=== PATIENT | male | born 1960 | race African-American/Black ===

== ENCOUNTER 2017-02-10 15:37 | Emergency (ER) | payer OTHER ==
[~2017-02-10] VITALS: Ht 170.2 cm; Wt 100.0 kg
[2017-02-10] MEDS ORDERED: LIDOCAINE HCL 1% 10 ML VIAL INJ ONE (16:00)
[2017-02-10] MEDS ORDERED: LISI-661 PO (16:12)
[2017-02-10 17:22] VITALS: BP 151/99
== END 2017-02-10 17:45 | disposition home or self-care (01) ==
LOC: EMS 15:39
DX: S39.94XA Unspecified injury of external genitals, initial encounter (principal); I10 Essential (primary) hypertension; F17.210 Nicotine dependence, cigarettes, uncomplicated; X58.XXXA Exposure to other specified factors, initial encounter; Y93.89 Activity, other specified; Y92.89 Other specified places as the place of occurrence of the external cause; Y99.8 Other external cause status
CPT/HCPCS: 99283; J3490

== ENCOUNTER 2017-08-17 18:00 | Emergency (ER) | payer OTHER ==
[~2017-08-17] VITALS: Ht 170.2 cm; Wt 119.1 kg
[~2017-08-17 18:00] MED LIST: LISI-661 PO
[2017-08-17 20:11] LABS: HEMATOCRIT 42.2 % (41-53); HEMOGLOBIN 14.5 g/dL (13.5-17.5); MEAN CORPUSCULAR HEMOGLOBIN 31.8 pg (26.0-34.0); MEAN CORPUSCULAR HGB CONC 34.4 G/dL (31.0-37.0); MEAN CORPUSCULAR VOLUME 92 fL (80-100); PLATELET COUNT (AUTO) 133 K/uL (150-450); RED BLOOD CELL COUNT(AUTO) 4.57 MIL/uL (4.50-5.90)
[2017-08-17 20:15] LABS: ANION GAP 11 mmol/L (8-16); CALCIUM, TOTAL 8.7 mg/dL (8.8-10.5); CARBON DIOXIDE 26 mmol/L (22-29); CHLORIDE 100 mmol/L (98-107); CREATININE 1.09 mg/dL (0.60-1.30); GLOMERULAR FILTR. RATE CALC > 60 mL/min (>60); GLUCOSE,RANDOM 124 mg/dL (70-110); POTASSIUM 3.4 mmol/L (3.5-5.1); SODIUM SERUM 137 mmol/L (136-145); UREA NITROGEN, BLOOD 11 mg/dL (7-18)
[2017-08-17 20:21] LABS: ALANINE AMINOTRANSFERASE 66 U/L (12-78); ALBUMIN 2.7 g/dL (3.4-5.0); ALKALINE PHOSPHATASE 127 U/L (46-116); ASPARTATE AMINOTRANSFERASE 54 U/L (15-37); BILIRUBIN,TOTAL 0.6 mg/dL (0.1-1.0); TOTAL PROTEIN, SERUM 7.7 g/dL (6.4-8.2)
[2017-08-17 20:44] LABS: BAND NEUTROPHILS % (MANUAL) 4 % (1-5); LYMPHOCYTES % (MANUAL) 12 % (22-44); MONOCYTES % (MANUAL) 25 % (2-9); PLATELET MORPHOLOGY COMMENT GIANT PLTS PRESENT; SEGMENTED NEUTROPHILS % 59 % (40-70)
[2017-08-17] MEDS ORDERED: ALBUTEROL SULFATE 2.5 MG/0.5 ML NEB SOLUTION NEB ONE (20:45)
[2017-08-17 20:49] LABS: LACTIC ACID 1.6 mmol/L (0.4-2.0)
[2017-08-17] MEDS ORDERED: IOVERSOL 350 MG/ML 100 ML VIAL ONE (21:15)
[2017-08-17 22:01] LABS: INFLUENZA TYPE A NEGATIVE FOR TYPE A (NEGATIVE); INFLUENZA TYPE B POSITIVE FOR TYPE B (NEGATIVE)
[2017-08-17] MEDS ORDERED: OSELTAMIVIR PHOSPHATE 75 MG CAPSULE PO ONE (22:45)
[2017-08-17] MEDS ORDERED: ACETAMINOPHEN 500 MG TABLET PO ONE (22:45)
[2017-08-17] MEDS ORDERED: LEVOFLOXACIN 750 MG/D5% WATER 150 ML IV ONE (22:45)
[2017-08-17] MEDS ORDERED: SODIUM CHLORIDE 0.9% 1,000 ML IV ONE ×2 (23:00)
[2017-08-17 23:30] VITALS: BP 127/97
== END 2017-08-18 00:31 | disposition left against medical advice (07) ==
LOC: EMS 18:01
DX: J11.1 Influenza due to unidentified influenza virus with other respiratory manifestations (principal); J18.9 Pneumonia, unspecified organism; I10 Essential (primary) hypertension; M41.9 Scoliosis, unspecified; F17.210 Nicotine dependence, cigarettes, uncomplicated
CPT/HCPCS: 36415; 71046; 71260; 80053; 83605; 85025; 87040; 87804; 94640; 96365; 99285; J1956; J7030; J7613; Q9967

== ENCOUNTER 2020-12-23 10:38 | Inpatient (IN) | payer OTHER ==
[~2020-12-23] VITALS: Ht 177.8 cm; Wt 93.9 kg
[~2020-12-23 10:38] MED LIST changes: +ASPI-1450 PO; +FURO40 PO; +ISOS1TAB2 PO; -LISI-661 PO; +METO25 PO
[2020-12-23] MEDS ORDERED: ONDANSETRON HCL 4 MG/2 ML VIAL IVP ONE (12:00)
[2020-12-23 12:09] LABS: COVID AG,FIA SOURCE NASAL SWAB
[2020-12-23 12:23] LABS: GLUCOSE,POINT OF CARE 138 MG/DL (70-110)
[2020-12-23 12:42] LABS: ANION GAP 12 mmol/L (8-16); CALCIUM, TOTAL 9.3 mg/dL (8.8-10.5); CARBON DIOXIDE 23 mmol/L (22-29); CHLORIDE 104 mmol/L (98-107); CREATININE 1.34 mg/dL (0.60-1.30); GLOMERULAR FILTR. RATE CALC > 60 mL/min (>60); GLUCOSE,RANDOM 158 mg/dL (70-110); POTASSIUM 3.6 mmol/L (3.5-5.1); SODIUM SERUM 139 mmol/L (136-145); UREA NITROGEN, BLOOD 14 mg/dL (7-18)
[2020-12-23 12:47] LABS: ALANINE AMINOTRANSFERASE 79 U/L (12-78); ALBUMIN 3.4 g/dL (3.4-5.0); ALKALINE PHOSPHATASE 135 U/L (46-116); ASPARTATE AMINOTRANSFERASE 79 U/L (15-37); BILIRUBIN,TOTAL 1.1 mg/dL (0.1-1.0); LIPASE 39 U/L (73-393); TOTAL PROTEIN, SERUM 8.4 g/dL (6.4-8.2)
[2020-12-23 13:27] LABS: BASOPHILS % (AUTO) 0.5 % (0.0-2.0); EOSINOPHILS % (AUTO) 0.1 % (1.0-6.0); HEMATOCRIT 47.2 % (41-53); HEMOGLOBIN 15.6 g/dL (13.5-17.5); LYMPHOCYTES # (AUTO) 0.6 K/uL (1.0-4.8); LYMPHOCYTES % (AUTO) 10.9 % (22.0-44.0); MEAN CORPUSCULAR HEMOGLOBIN 30.9 pg (26.0-34.0); MEAN CORPUSCULAR VOLUME 94 fL (80-100); MONOCYTES # (AUTO) 0.4 K/uL (0.1-1.0); MONOCYTES % (AUTO) 7.3 % (2.0-9.0); NEUTROPHILS # (AUTO) 4.8 K/uL (1.8-7.7); NEUTROPHILS % (AUTO) 81.2 % (40.0-70.0); PLATELET COUNT (AUTO) 123 K/uL (150-450); RED BLOOD CELL COUNT(AUTO) 5.04 MIL/uL (4.50-5.90); RED CELL DISTRIBUTION WIDTH 14.3 % (11.5-14.5)
[2020-12-23] MEDS ORDERED: HEPARIN SODIUM,PORCINE 5,000 UNITS/ML VIAL IVP PRN ×2 (13:45)
[2020-12-23] MEDS ORDERED: NITROGLYCERIN 2% (1 GM=INCH) PACKET TP ONE (13:45)
[2020-12-23] MEDS ORDERED: METOPROLOL TARTRATE 50 MG TABLET PO ONE (13:45)
[2020-12-23] MEDS ORDERED: HEPARIN SODIUM,PORCINE 5,000 UNITS/ML VIAL IVP ONE (13:45)
[2020-12-23] MEDS ORDERED: ASPIRIN 81 MG CHEWABLE TABLET PO ONE (13:45)
[2020-12-23] MEDS ORDERED: ATORVASTATIN CALCIUM 40 MG TABLET PO ONE (14:00)
[2020-12-23 14:35] LABS: APPEARANCE,URINE CLEAR (CLEAR); BILIRUBIN,URINE NEGATIVE (NEGATIVE); GLUCOSE, URINE (UA) NEGATIVE (NEGATIVE); KETONES,URINE NEGATIVE (NEGATIVE); LEUKOCYTE ESTERASE ,URINE NEGATIVE (NEGATIVE); NITRATE,URINE NEGATIVE (NEGATIVE); OCCULT BLOOD,URINE SMALL (NEGATIVE); PH,URINE 6.5 (5.0-8.0); PROTEIN,URINE SEE CONFIRM (NEGATIVE)
[2020-12-23 14:43] LABS: AMPHET/METH SCREEN,URINE NEGATIVE (NEGATIVE); BARBITURATE SCREEN, URINE NEGATIVE (NEGATIVE); BENZODIAZEPINES SCREEN,URINE NEGATIVE (NEGATIVE); CANNABINOID SCREEN,URINE POSITIVE (NEGATIVE); COCAINE SCREEN,URINE NEGATIVE (NEGATIVE); METHADONE SCREEN, URINE NEGATIVE (NEGATIVE); OPIATE SCREEN,URINE NEGATIVE (NEGATIVE); PHENCYCLIDINE SCREEN,URINE NEGATIVE (NEGATIVE)
[2020-12-23 14:44] VITALS: BP 156/101
[2020-12-23] MEDS ORDERED: SODIUM CHLORIDE 0.9% 1,000 ML ONE (14:49)
[2020-12-23 14:51] LABS: SULFOSALICYLIC ACID,URINE 3+ (Negative)
[2020-12-23 14:52] LABS: BACTERIA,URINE None Seen /HPF (None Seen); RBC,URINE None Seen /HPF (0-2); SQUAMOUS EPITHELIAL CELL,UR Few /LPF (None Seen); WBC,URINE 0-2 /HPF (0-5)
[2020-12-23] MEDS ORDERED: ONDANSETRON HCL 4 MG/2 ML VIAL IVP PRN (15:45)
[2020-12-23] MEDS ORDERED: IPRATROPIUM BROMIDE 0.5 MG/2.5 ML NEB SOLUTION NEB PRN (15:45)
[2020-12-23] MEDS ORDERED: ACETAMINOPHEN 325 MG TABLET PO PRN (15:45)
[2020-12-23] MEDS ORDERED: ALBUTEROL SULFATE 2.5 MG/0.5 ML NEB SOLUTION NEB PRN (15:45)
[2020-12-23] MEDS ORDERED: NITROGLYCERIN 0.4 MG SUBLINGUAL TABLET #25 SL PRN (15:45)
[2020-12-23] MEDS ORDERED: 0.9% SODIUM CHLORIDE 10 ML SYRINGE IVP PRN (15:45)
[2020-12-23] MEDS ORDERED: MAGNESIUM HYDROXIDE SUSPENSION 30 ML UDCUP PO PRN (15:45)
[2020-12-23] MEDS ORDERED: DOCUSATE SODIUM 100 MG CAPSULE PO PRN (15:45)
[2020-12-23] MEDS ORDERED: BISACODYL 10 MG RECTAL RECTAL SUPPOSITORY PR PRN (15:45)
[2020-12-23] MEDS: PANTOPRAZOLE SODIUM 40 MG DR TABLET PO SCH ×2 (15:45→16:16)
[2020-12-23 16:01] LABS: INR 1.1 (0.9-1.1); PROTHROMBIN TIME 11.9 SEC (9.4-11.6)
[2020-12-23] MEDS: HEPARIN SODIUM 25000 UNITS/D5W 250 ML IV PRN (16:21)
[2020-12-23 19:30] VITALS: BP 147/91
[2020-12-23] MEDS: LISINOPRIL 5 MG TABLET PO SCH (20:12)
[2020-12-23] MEDS: METOPROLOL TARTRATE 25 MG TABLET PO SCH (20:12)
[2020-12-23] MEDS: MELATONIN 3 MG TABLET PO PRN (22:07)
[2020-12-23 23:52] VITALS: BP 132/90
[2020-12-24 04:45] VITALS: BP 145/97
[2020-12-24 06:52] LABS: BASOPHILS % (AUTO) 1.1 % (0.0-2.0); EOSINOPHILS % (AUTO) 0.8 % (1.0-6.0); HEMATOCRIT 43.9 % (41-53); HEMOGLOBIN 14.5 g/dL (13.5-17.5); LYMPHOCYTES # (AUTO) 1.8 K/uL (1.0-4.8); LYMPHOCYTES % (AUTO) 27.4 % (22.0-44.0); MEAN CORPUSCULAR HEMOGLOBIN 31.1 pg (26.0-34.0); MEAN CORPUSCULAR HGB CONC 33.1 G/dL (31.0-37.0); MEAN CORPUSCULAR VOLUME 94 fL (80-100); MONOCYTES # (AUTO) 0.9 K/uL (0.1-1.0); MONOCYTES % (AUTO) 13.5 % (2.0-9.0); NEUTROPHILS # (AUTO) 3.6 K/uL (1.8-7.7); NEUTROPHILS % (AUTO) 57.2 % (40.0-70.0); PLATELET COUNT (AUTO) 129 K/uL (150-450); RED BLOOD CELL COUNT(AUTO) 4.67 MIL/uL (4.50-5.90); RED CELL DISTRIBUTION WIDTH 14.2 % (11.5-14.5)
[2020-12-24 07:10] LABS: ALBUMIN 2.9 g/dL (3.4-5.0); BILIRUBIN,TOTAL 1.3 mg/dL (0.1-1.0); CALCIUM, TOTAL 9.2 mg/dL (8.8-10.5); CHOL/HDL RATIO 5.5 (4.2-7.3); CREATININE 1.51 mg/dL (0.60-1.30); POTASSIUM 3.7 mmol/L (3.5-5.1); TOTAL PROTEIN, SERUM 7.1 g/dL (6.4-8.2)
[2020-12-24 07:15] LABS: HEMOGLOBIN A1C 5.6 % (3.8-5.6)
[2020-12-24 07:37] VITALS: BP 150/93
[2020-12-24] MEDS: LISINOPRIL 5 MG TABLET PO SCH ×2 (08:32→20:44)
[2020-12-24] MEDS: ASPIRIN 81 MG CHEWABLE TABLET PO SCH (08:32)
[2020-12-24] MEDS: PANTOPRAZOLE SODIUM 40 MG DR TABLET PO SCH (08:33)
[2020-12-24] MEDS: METOPROLOL TARTRATE 25 MG TABLET PO SCH ×2 (08:33→20:41)
[2020-12-24] MEDS: HEPARIN SODIUM 25000 UNITS/D5W 250 ML IV PRN ×3 (08:45→21:17)
[2020-12-24 11:35] VITALS: BP 137/83
[2020-12-24 15:38] VITALS: BP 131/84
[2020-12-24 20:06] VITALS: BP 133/94
[2020-12-24] MEDS: MELATONIN 3 MG TABLET PO PRN (20:40)
[2020-12-25 00:23] VITALS: BP 139/88
[2020-12-25 04:34] VITALS: BP 141/89
[2020-12-25 07:17] VITALS: BP 124/86
[2020-12-25] MEDS: ASPIRIN 81 MG CHEWABLE TABLET PO SCH (08:14)
[2020-12-25] MEDS: PANTOPRAZOLE SODIUM 40 MG DR TABLET PO SCH (08:15)
[2020-12-25] MEDS: METOPROLOL TARTRATE 25 MG TABLET PO SCH (08:15)
[2020-12-25] MEDS: THIAMINE 100 MG TABLET PO SCH (08:15)
[2020-12-25] MEDS: FUROSEMIDE 20 MG TABLET PO SCH (08:15)
[2020-12-25] MEDS: MULTIVITAMINS WITH MINERALS, THERAPEUTIC TABLET PO SCH (08:15)
[2020-12-25] MEDS: LISINOPRIL 5 MG TABLET PO SCH ×2 (08:16→21:01)
[2020-12-25 11:07] VITALS: BP 108/63
[2020-12-25] MEDS: HEPARIN SODIUM 25000 UNITS/D5W 250 ML IV PRN (15:56)
[2020-12-25 16:27] VITALS: BP 121/86
[2020-12-25 20:42] VITALS: BP 129/79
[2020-12-25] MEDS: METOPROLOL SUCCINATE 25 MG ER TABLET PO SCH (21:01)
[2020-12-25] MEDS: MELATONIN 3 MG TABLET PO PRN (21:02)
[2020-12-25] MEDS: MORPHINE SULFATE 2 MG/ML SYRINGE IVP PRN (21:03)
[2020-12-26] VITALS (14 sets, daily range): BP systolic 93–138; BP diastolic 7–79
[2020-12-26 06:19] LABS: BASOPHILS % (AUTO) 0.4 % (0.0-2.0); EOSINOPHILS % (AUTO) 1.1 % (1.0-6.0); HEMATOCRIT 36.7 % (41-53); HEMOGLOBIN 12.1 g/dL (13.5-17.5); LYMPHOCYTES # (AUTO) 2.3 K/uL (1.0-4.8); LYMPHOCYTES % (AUTO) 29.9 % (22.0-44.0); MEAN CORPUSCULAR HEMOGLOBIN 31.4 pg (26.0-34.0); MEAN CORPUSCULAR HGB CONC 32.9 G/dL (31.0-37.0); MEAN CORPUSCULAR VOLUME 95 fL (80-100); MONOCYTES # (AUTO) 1.2 K/uL (0.1-1.0); MONOCYTES % (AUTO) 15.7 % (2.0-9.0); NEUTROPHILS % (AUTO) 52.9 % (40.0-70.0); PLATELET COUNT (AUTO) 120 K/uL (150-450); RED BLOOD CELL COUNT(AUTO) 3.85 MIL/uL (4.50-5.90); RED CELL DISTRIBUTION WIDTH 14.3 % (11.5-14.5)
[2020-12-26 06:34] LABS: INR 1.2 (0.9-1.1); PROTHROMBIN TIME 12.4 SEC (9.4-11.6)
[2020-12-26 06:55] LABS: ALBUMIN 2.7 g/dL (3.4-5.0); BILIRUBIN,TOTAL 0.7 mg/dL (0.1-1.0); CALCIUM, TOTAL 8.6 mg/dL (8.8-10.5); CREATININE 1.56 mg/dL (0.60-1.30); POTASSIUM 3.9 mmol/L (3.5-5.1); TOTAL PROTEIN, SERUM 6.4 g/dL (6.4-8.2)
[2020-12-26] MEDS ORDERED: SODIUM BICARBONATE 50 MEQ/50 ML VIAL ONE (08:33)
[2020-12-26] MEDS ORDERED: HEPARIN SODIUM 1000 UNITS/NS 1,000 ML ONE (08:33)
[2020-12-26] MEDS ORDERED: IOHEXOL 300 MG/ML 100 ML VIAL ONE (08:33)
[2020-12-26] MEDS ORDERED: IOHEXOL 300 MG/ML 150 ML VIAL ONE (08:33)
[2020-12-26] MEDS ORDERED: IOHEXOL 300 MG/ML 50 ML VIAL ONE (08:33)
[2020-12-26] MEDS ORDERED: LIDOCAINE/PF 1% 30 ML VIAL ONE (08:33)
[2020-12-26] MEDS: LISINOPRIL 5 MG TABLET PO SCH ×2 (09:00→20:50)
[2020-12-26] MEDS: ASPIRIN 81 MG CHEWABLE TABLET PO SCH (09:00)
[2020-12-26] MEDS ORDERED: FentaNYL CITRATE PF 100 MCG/2 ML VIAL ONE (09:01)
[2020-12-26] MEDS ORDERED: MIDAZOLAM HCL 2 MG/2 ML VIAL ONE (09:02)
[2020-12-26] MEDS ORDERED: IOHEXOL 300 MG/ML 150 ML VIAL IARTER ONE (09:15)
[2020-12-26] MEDS ORDERED: MIDAZOLAM HCL 2 MG/2 ML VIAL IVP ONE (09:15)
[2020-12-26] MEDS ORDERED: SODIUM CHLORIDE 0.9% 500 ML IV ONE (09:15)
[2020-12-26] MEDS ORDERED: FentaNYL CITRATE PF 100 MCG/2 ML VIAL IVP ONE (09:15)
[2020-12-26] MEDS ORDERED: HEPARIN SODIUM 1000 UNITS/NS 1,000 ML IARTER ONE (09:15)
[2020-12-26] MEDS ORDERED: LIDOCAINE 1% 30 ML/SOD BICARB 8.4% 4 ML SQ ONE (09:15)
[2020-12-26] MEDS ORDERED: IOHEXOL 300 MG/ML 50 ML VIAL IARTER ONE (09:15)
[2020-12-26] MEDS: THIAMINE 100 MG TABLET PO SCH (10:50)
[2020-12-26] MEDS: PANTOPRAZOLE SODIUM 40 MG DR TABLET PO SCH (10:50)
[2020-12-26] MEDS: MULTIVITAMINS WITH MINERALS, THERAPEUTIC TABLET PO SCH (10:50)
[2020-12-26] MEDS: METOPROLOL SUCCINATE 25 MG ER TABLET PO SCH ×2 (10:50→20:47)
[2020-12-26] MEDS ORDERED: FURO20 PO (14:35)
[2020-12-26] MEDS ORDERED: LISI-892 PO (14:36)
[2020-12-26] MEDS ORDERED: METO25XL PO (14:37)
[2020-12-26] MEDS: MELATONIN 3 MG TABLET PO PRN (20:50)
[2020-12-27 00:35] VITALS: BP 108/67
[2020-12-27 06:12] LABS: BASOPHILS % (AUTO) 0.6 % (0.0-2.0); EOSINOPHILS % (AUTO) 1.3 % (1.0-6.0); HEMATOCRIT 30.3 % (41-53); HEMOGLOBIN 10.3 g/dL (13.5-17.5); LYMPHOCYTES # (AUTO) 1.6 K/uL (1.0-4.8); LYMPHOCYTES % (AUTO) 22.1 % (22.0-44.0); MEAN CORPUSCULAR HEMOGLOBIN 32.1 pg (26.0-34.0); MEAN CORPUSCULAR VOLUME 94 fL (80-100); MONOCYTES # (AUTO) 1.2 K/uL (0.1-1.0); MONOCYTES % (AUTO) 16.8 % (2.0-9.0); NEUTROPHILS # (AUTO) 4.4 K/uL (1.8-7.7); NEUTROPHILS % (AUTO) 59.2 % (40.0-70.0); PLATELET COUNT (AUTO) 110 K/uL (150-450); RED CELL DISTRIBUTION WIDTH 14.5 % (11.5-14.5)
[2020-12-27 07:06] LABS: ALBUMIN 2.6 g/dL (3.4-5.0); BILIRUBIN,TOTAL 0.5 mg/dL (0.1-1.0); CALCIUM, TOTAL 8.4 mg/dL (8.8-10.5); CREATININE 1.54 mg/dL (0.60-1.30); POTASSIUM 3.7 mmol/L (3.5-5.1); TOTAL PROTEIN, SERUM 6.3 g/dL (6.4-8.2)
[2020-12-27 07:42] VITALS: BP 122/77
[2020-12-27] MEDS: ASPIRIN 81 MG CHEWABLE TABLET PO SCH (09:28)
[2020-12-27] MEDS: LISINOPRIL 5 MG TABLET PO SCH ×2 (09:28→20:42)
[2020-12-27] MEDS: FUROSEMIDE 20 MG TABLET PO SCH (09:28)
[2020-12-27] MEDS: MULTIVITAMINS WITH MINERALS, THERAPEUTIC TABLET PO SCH (09:28)
[2020-12-27] MEDS: PANTOPRAZOLE SODIUM 40 MG DR TABLET PO SCH (09:28)
[2020-12-27] MEDS: THIAMINE 100 MG TABLET PO SCH (09:28)
[2020-12-27] MEDS: METOPROLOL SUCCINATE 25 MG ER TABLET PO SCH ×2 (09:28→20:42)
[2020-12-27 11:56] VITALS: BP 116/72
[2020-12-27 15:02] VITALS: BP 124/66
[2020-12-27 20:29] VITALS: BP 118/58
[2020-12-27] MEDS: MELATONIN 3 MG TABLET PO PRN (20:42)
[2020-12-27] MEDS ORDERED: ZINC GLUCONATE PO PRN (21:30)
[2020-12-27] MEDS ORDERED: OXYMETAZOLINE HCL 0.05% 15 ML NASAL SPRAY NASAL PRN (21:30)
[2020-12-27] MEDS: ZINC SULFATE 220 MG CAPSULE PO SCH (22:21)
[2020-12-28] VITALS (7 sets, daily range): BP systolic 116–137; BP diastolic 59–76
[2020-12-28] MEDS: ASPIRIN 81 MG CHEWABLE TABLET PO SCH (08:26)
[2020-12-28] MEDS: THIAMINE 100 MG TABLET PO SCH (08:26)
[2020-12-28] MEDS: ZINC SULFATE 220 MG CAPSULE PO SCH ×2 (08:26→21:00)
[2020-12-28] MEDS: LISINOPRIL 5 MG TABLET PO SCH ×2 (08:26→21:00)
[2020-12-28] MEDS: MULTIVITAMINS WITH MINERALS, THERAPEUTIC TABLET PO SCH (08:26)
[2020-12-28] MEDS: PANTOPRAZOLE SODIUM 40 MG DR TABLET PO SCH (08:26)
[2020-12-28] MEDS: METOPROLOL SUCCINATE 25 MG ER TABLET PO SCH ×2 (08:26→21:00)
[2020-12-28 17:36] LABS: COVID AG,FIA SOURCE NASOPHARYNGEAL
[2020-12-28] MEDS: MELATONIN 3 MG TABLET PO PRN (21:02)
[2020-12-29 04:00] VITALS: BP 123/77
[2020-12-29 07:37] VITALS: BP 108/67
[2020-12-29] MEDS: MULTIVITAMINS WITH MINERALS, THERAPEUTIC TABLET PO SCH (08:14)
[2020-12-29] MEDS: ASPIRIN 81 MG CHEWABLE TABLET PO SCH (08:14)
[2020-12-29] MEDS: ZINC SULFATE 220 MG CAPSULE PO SCH ×2 (08:15→20:15)
[2020-12-29] MEDS: THIAMINE 100 MG TABLET PO SCH (08:16)
[2020-12-29] MEDS: FUROSEMIDE 20 MG TABLET PO SCH (08:25)
[2020-12-29] MEDS: LISINOPRIL 5 MG TABLET PO SCH ×2 (08:25→20:15)
[2020-12-29] MEDS: METOPROLOL SUCCINATE 25 MG ER TABLET PO SCH ×2 (08:25→20:15)
[2020-12-29] MEDS: PANTOPRAZOLE SODIUM 40 MG DR TABLET PO SCH (08:25)
[2020-12-29 11:29] VITALS: BP 115/59
[2020-12-29 15:17] VITALS: BP 122/64
[2020-12-29 19:21] VITALS: BP 138/66
[2020-12-29] MEDS: MELATONIN 3 MG TABLET PO PRN (20:14)
[2020-12-29 23:04] VITALS: BP 120/75
[2020-12-30] VITALS (9 sets, daily range): BP systolic 123–158; BP diastolic 73–103
[2020-12-30 06:26] LABS: BASOPHILS % (AUTO) 0.7 % (0.0-2.0); EOSINOPHILS % (AUTO) 4.7 % (1.0-6.0); HEMATOCRIT 30.3 % (41-53); HEMOGLOBIN 10.2 g/dL (13.5-17.5); LYMPHOCYTES # (AUTO) 1.2 K/uL (1.0-4.8); LYMPHOCYTES % (AUTO) 24.7 % (22.0-44.0); MEAN CORPUSCULAR HGB CONC 33.8 G/dL (31.0-37.0); MEAN CORPUSCULAR VOLUME 95 fL (80-100); MONOCYTES # (AUTO) 1.1 K/uL (0.1-1.0); MONOCYTES % (AUTO) 24.1 % (2.0-9.0); NEUTROPHILS # (AUTO) 2.2 K/uL (1.8-7.7); NEUTROPHILS % (AUTO) 45.8 % (40.0-70.0); PLATELET COUNT (AUTO) 132 K/uL (150-450); RED CELL DISTRIBUTION WIDTH 14.4 % (11.5-14.5)
[2020-12-30 06:35] LABS: INR 1.1 (0.9-1.1); PROTHROMBIN TIME 11.3 SEC (9.4-11.6)
[2020-12-30 06:52] LABS: ANION GAP 6 mmol/L (8-16); CALCIUM, TOTAL 8.3 mg/dL (8.8-10.5); CARBON DIOXIDE 25 mmol/L (22-29); CHLORIDE 106 mmol/L (98-107); GLOMERULAR FILTR. RATE CALC > 60 mL/min (>60); GLUCOSE,RANDOM 107 mg/dL (70-110); POTASSIUM 4.1 mmol/L (3.5-5.1); SODIUM SERUM 137 mmol/L (136-145); UREA NITROGEN, BLOOD 16 mg/dL (7-18)
[2020-12-30] MEDS: ZINC SULFATE 220 MG CAPSULE PO SCH ×2 (09:00→20:10)
[2020-12-30] MEDS: MULTIVITAMINS WITH MINERALS, THERAPEUTIC TABLET PO SCH (09:00)
[2020-12-30] MEDS ORDERED: IOHEXOL 300 MG/ML 50 ML VIAL ONE (13:50)
[2020-12-30] MEDS ORDERED: LIDOCAINE/PF 1% 30 ML VIAL ONE ×2 (13:50→14:48)
[2020-12-30] MEDS ORDERED: SODIUM BICARBONATE 50 MEQ/50 ML VIAL ONE (13:51)
[2020-12-30] MEDS ORDERED: PROPOFOL 1000 MG/ISO-OSM 100 ML ONE (14:08)
[2020-12-30] MEDS ORDERED: LIDOCAINE 1% 30 ML/SOD BICARB 8.4% 4 ML SQ ONE (14:45)
[2020-12-30] MEDS ORDERED: BUPIVACAINE LIPOSOME/PF 1.3%-13.3MG/ML SUSPENSION 10 ML VIAL INJ ONE (14:45)
[2020-12-30] MEDS: METOPROLOL SUCCINATE 25 MG ER TABLET PO SCH ×2 (17:00→20:09)
[2020-12-30] MEDS: PANTOPRAZOLE SODIUM 40 MG DR TABLET PO SCH (17:00)
[2020-12-30] MEDS: LISINOPRIL 5 MG TABLET PO SCH ×2 (17:01→20:09)
[2020-12-30] MEDS: THIAMINE 100 MG TABLET PO SCH (17:01)
[2020-12-30] MEDS: ASPIRIN 81 MG CHEWABLE TABLET PO SCH (17:01)
[2020-12-30] MEDS ORDERED: SODIUM CHLORIDE 0.9% 500 ML IV ONE (19:53)
[2020-12-30] MEDS: CeFAZolin 1 GM/DEXTROSE 50 ML IV SCH (20:09)
[2020-12-30] MEDS: MELATONIN 3 MG TABLET PO PRN (20:09)
[2020-12-31 00:36] VITALS: BP 144/82
[2020-12-31] MEDS: CeFAZolin 1 GM/DEXTROSE 50 ML IV SCH ×2 (03:16→08:34)
[2020-12-31] MEDS: MORPHINE SULFATE 2 MG/ML SYRINGE IVP PRN (03:21)
[2020-12-31] MEDS ORDERED: PROPOFOL 1% 20 ML VIAL IVP ONE (05:46)
[2020-12-31] MEDS ORDERED: LIDOCAINE/PF 2% 5 ML VIAL IM ONE (05:46)
[2020-12-31] MEDS ORDERED: MIDAZOLAM HCL 2 MG/2 ML VIAL IVP ONE (05:46)
[2020-12-31] MEDS ORDERED: FentaNYL CITRATE PF 100 MCG/2 ML VIAL IVP ONE (05:46)
[2020-12-31] MEDS: ZINC SULFATE 220 MG CAPSULE PO SCH (08:33)
[2020-12-31] MEDS: PANTOPRAZOLE SODIUM 40 MG DR TABLET PO SCH (08:33)
[2020-12-31] MEDS: METOPROLOL SUCCINATE 25 MG ER TABLET PO SCH (08:33)
[2020-12-31] MEDS: MULTIVITAMINS WITH MINERALS, THERAPEUTIC TABLET PO SCH (08:33)
[2020-12-31] MEDS: THIAMINE 100 MG TABLET PO SCH (08:33)
[2020-12-31] MEDS: FUROSEMIDE 20 MG TABLET PO SCH (08:34)
[2020-12-31] MEDS: LISINOPRIL 5 MG TABLET PO SCH (08:34)
[2020-12-31] MEDS: ASPIRIN 81 MG CHEWABLE TABLET PO SCH (08:34)
[2020-12-31 09:00] VITALS: BP 132/80
[2020-12-31 11:32] VITALS: BP 118/64
== END 2020-12-31 12:30 | DRG 222 ==
LOC: EMS 10:54 → 5S 13:52
PROVIDERS: ADMIT Internal Medicine; ATTEND Internal Medicine
PROC: 4A023N7 Measurement of Cardiac Sampling and Pressure, Left Heart, Percutaneous Approach (ICD-10-PCS; principal; 2020-12-26)
PROC: B2111ZZ Fluoroscopy of Multiple Coronary Arteries using Low Osmolar Contrast (ICD-10-PCS; 2020-12-26)
PROC: 0JH608Z Insertion of Defibrillator Generator into Chest Subcutaneous Tissue and Fascia, Open Approach (ICD-10-PCS; 2020-12-30)
PROC: 02HK3KZ Insertion of Defibrillator Lead into Right Ventricle, Percutaneous Approach (ICD-10-PCS; 2020-12-30)
DX: I21.4 Non-ST elevation (NSTEMI) myocardial infarction (principal); I50.23 Acute on chronic systolic (congestive) heart failure; I47.2 Ventricular tachycardia; I13.0 Hypertensive heart and chronic kidney disease with heart failure and stage 1 through stage 4 chronic kidney disease, or unspecified chronic kidney disease; I42.8 Other cardiomyopathies; N17.9 Acute kidney failure, unspecified; F17.210 Nicotine dependence, cigarettes, uncomplicated; Z20.822 Contact with and (suspected) exposure to COVID-19; I25.5 Ischemic cardiomyopathy; N18.30 Chronic kidney disease, stage 3 unspecified; M41.9 Scoliosis, unspecified; J44.9 Chronic obstructive pulmonary disease, unspecified; Z87.01 Personal history of pneumonia (recurrent); Z82.49 Family history of ischemic heart disease and other diseases of the circulatory system; Z79.899 Other long term (current) drug therapy
CPT/HCPCS: 33249; 71045; 71046; 74022; 76000; 76705; 80048; 80053; 80061; 80074; 81001; 81002; 82948; 82962; 83036; 83605; 83690; 83735; 83880; 84484; 85025; 85610; 85730; 93005; 93306; 99285; A9575; G0480; J0690; J1644; J2250; J2270; J2405; J2704; J3010; J3490; J7030; J7040; Q9967; 36415-L1; 36415-TC; J7613

== ENCOUNTER → 2021-01-24 | Outpatient (CLI) | payer OTHER ==
[~2021-01-24] MED LIST changes: +FURO20 PO; -FURO40 PO; +LISI-892 PO; -METO25 PO; +METO25XL PO
[2021-01-24 11:17] VITALS: BP 149/98
== END | disposition home or self-care (01) ==
LOC: SRCNTR 10:03
PROVIDERS: ATTEND Internal Medicine Clinical Cardiac Electrophysiology
DX: Z45.02 Encounter for adjustment and management of automatic implantable cardiac defibrillator (principal)
CPT/HCPCS: 93289; G0463

== ENCOUNTER 2022-03-04 03:56 | Inpatient (IN) | payer OTHER ==
[~2022-03-04] VITALS: Ht 170.2 cm; Wt 98.0 kg
[~2022-03-04 03:56] MED LIST changes: -ISOS1TAB2 PO; +ISOS1TAB3 PO
[2022-03-04] MEDS ORDERED: MORPHINE SULFATE 4 MG/ML SYRINGE IVP ONE (04:45)
[2022-03-04] MEDS ORDERED: ONDANSETRON HCL 4 MG/2 ML VIAL IVP ONE (04:45)
[2022-03-04] MEDS ORDERED: FUROSEMIDE 40 MG/4 ML VIAL IVP ONE (04:45)
[2022-03-04] MEDS ORDERED: NITROGLYCERIN 2% (1 GM=INCH) PACKET TP ONE (04:45)
[2022-03-04 04:56] LABS: BASOPHILS % (AUTO) 1.7 % (0.0-2.0); EOSINOPHILS % (AUTO) 2.7 % (1.0-6.0); HEMATOCRIT 37.8 % (41-53); HEMOGLOBIN 12.3 g/dL (13.5-17.5); LYMPHOCYTES # (AUTO) 1.7 K/uL (1.0-4.8); MEAN CORPUSCULAR HEMOGLOBIN 30.6 pg (26.0-34.0); MEAN CORPUSCULAR HGB CONC 32.6 G/dL (31.0-37.0); MEAN CORPUSCULAR VOLUME 94 fL (80-100); MONOCYTES # (AUTO) 0.8 K/uL (0.1-1.0); MONOCYTES % (AUTO) 15.8 % (2.0-9.0); NEUTROPHILS # (AUTO) 2.1 K/uL (1.8-7.7); NEUTROPHILS % (AUTO) 44.8 % (40.0-70.0); PLATELET COUNT (AUTO) 132 K/uL (150-450); RED BLOOD CELL COUNT(AUTO) 4.03 MIL/uL (4.50-5.90); RED CELL DISTRIBUTION WIDTH 15.1 % (11.5-14.5)
[2022-03-04 05:05] LABS: ANION GAP 4 mmol/L (8-16); CALCIUM, TOTAL 8.8 mg/dL (8.8-10.5); CARBON DIOXIDE 27 mmol/L (22-29); CHLORIDE 106 mmol/L (98-107); CREATININE 1.79 mg/dL (0.60-1.30); GLUCOSE,RANDOM 122 mg/dL (70-110); POTASSIUM 3.4 mmol/L (3.5-5.1); SODIUM SERUM 137 mmol/L (136-145); UREA NITROGEN, BLOOD 27 mg/dL (7-18)
[2022-03-04 05:11] LABS: APPEARANCE,URINE CLEAR (CLEAR); BILIRUBIN,URINE NEGATIVE (NEGATIVE); GLUCOSE, URINE (UA) NEGATIVE (NEGATIVE); KETONES,URINE NEGATIVE (NEGATIVE); LEUKOCYTE ESTERASE ,URINE NEGATIVE (NEGATIVE); NITRATE,URINE NEGATIVE (NEGATIVE); OCCULT BLOOD,URINE NEGATIVE (NEGATIVE); PROTEIN,URINE 30-70 mg/dL (NEGATIVE); SPECIFIC GRAVITIY, URINE 1.014 (1.003-1.030)
[2022-03-04 05:13] LABS: GLOMERULAR FILTR. RATE CALC 47 mL/min (>60); LACTIC ACID 1.1 mmol/L (0.4-2.0)
[2022-03-04 05:17] LABS: AMPHET/METH SCREEN,URINE POSITIVE (NEGATIVE); BARBITURATE SCREEN, URINE NEGATIVE (NEGATIVE); BENZODIAZEPINES SCREEN,URINE NEGATIVE (NEGATIVE); CANNABINOID SCREEN,URINE NEGATIVE (NEGATIVE); COCAINE SCREEN,URINE NEGATIVE (NEGATIVE); METHADONE SCREEN, URINE NEGATIVE (NEGATIVE); OPIATE SCREEN,URINE NEGATIVE (NEGATIVE)
[2022-03-04 05:20] LABS: ALANINE AMINOTRANSFERASE 29 U/L (12-78); ALBUMIN 2.5 g/dL (3.4-5.0); ALKALINE PHOSPHATASE 133 U/L (46-116); ASPARTATE AMINOTRANSFERASE 43 U/L (15-37); BILIRUBIN,TOTAL 0.7 mg/dL (0.1-1.0); CREATINE KINASE, TOTAL ONLY 286 U/L (39-308); LIPASE 129 U/L (73-393); TOTAL PROTEIN, SERUM 6.6 g/dL (6.4-8.2)
[2022-03-04 05:21] LABS: PHENCYCLIDINE SCREEN,URINE NEGATIVE (NEGATIVE)
[2022-03-04 05:22] LABS: B-TYPE NATRIURETIC PEPTIDE 2250 pg/mL (0-100)
[2022-03-04 05:23] LABS: BACTERIA,URINE None Seen /HPF (None Seen); RBC,URINE None Seen /HPF (0-2); WBC,URINE None Seen /HPF (0-5)
[2022-03-04] MEDS ORDERED: ACETAMINOPHEN 325 MG TABLET PO PRN ×2 (05:45→14:00)
[2022-03-04] MEDS ORDERED: 0.9% SODIUM CHLORIDE 10 ML SYRINGE IVP PRN (05:45)
[2022-03-04] MEDS ORDERED: ONDANSETRON HCL 4 MG/2 ML VIAL IVP PRN ×2 (05:45→14:00)
[2022-03-04] MEDS ORDERED: DOXY-354 PO (05:57)
[2022-03-04] MEDS ORDERED: CEPH-558 PO (05:57)
[2022-03-04 06:01] LABS: COVID AG,FIA SOURCE NASOPHARYNGEAL
[2022-03-04] MEDS: OXYGEN THERAPY IH SCH ×2 (07:14→20:23)
[2022-03-04] MEDS ORDERED: BISACODYL 10 MG RECTAL RECTAL SUPPOSITORY PR PRN (14:00)
[2022-03-04] MEDS ORDERED: HYDROCODONE/ACETAMINOPHEN 5-325 MG TABLET PO PRN (14:00)
[2022-03-04] MEDS ORDERED: MAGNESIUM HYDROXIDE SUSPENSION 30 ML UDCUP PO PRN (14:00)
[2022-03-04] MEDS ORDERED: MORPHINE SULFATE 2 MG/ML SYRINGE IVP PRN (14:00)
[2022-03-04] MEDS ORDERED: HEPARIN SODIUM,PORCINE 5,000 UNITS/ML VIAL SQ SCH (16:00)
[2022-03-04 17:53] VITALS: BP 138/58
[2022-03-04 19:50] VITALS: BP 131/86
[2022-03-04] MEDS: FUROSEMIDE 40 MG/4 ML VIAL IVP SCH (20:30)
[2022-03-04] MEDS: ISOSORB DINIT/HYDRALAZINE HCL 20-37.5 MG TABLET PO SCH (20:30)
[2022-03-04] MEDS: METOPROLOL SUCCINATE 25 MG ER TABLET PO SCH (20:30)
[2022-03-04] MEDS: DOCUSATE SODIUM 100 MG CAPSULE PO SCH (20:30)
[2022-03-04] MEDS: LISINOPRIL 5 MG TABLET PO SCH (20:30)
[2022-03-04] MEDS ORDERED: HEPARIN SODIUM,PORCINE 5,000 UNITS/ML VIAL IVP PRN ×2 (21:45)
[2022-03-04] MEDS ORDERED: HEPARIN SODIUM 25000 UNITS/D5W 250 ML IV PRN (21:45)
[2022-03-04 23:50] VITALS: BP 124/76
[2022-03-05] MEDS: HEPARIN SODIUM,PORCINE 5,000 UNITS/ML VIAL SQ SCH ×3 (00:08→15:34)
[2022-03-05 04:31] VITALS: BP 125/72
[2022-03-05 07:24] VITALS: BP 130/87
[2022-03-05] MEDS: OXYGEN THERAPY IH SCH ×2 (08:07→20:02)
[2022-03-05] MEDS: FUROSEMIDE 40 MG/4 ML VIAL IVP SCH ×2 (08:07→20:03)
[2022-03-05] MEDS: ISOSORB DINIT/HYDRALAZINE HCL 20-37.5 MG TABLET PO SCH ×2 (08:08→20:03)
[2022-03-05] MEDS: LISINOPRIL 5 MG TABLET PO SCH ×2 (08:08→20:03)
[2022-03-05] MEDS: PANTOPRAZOLE SODIUM 40 MG DR TABLET PO SCH (08:08)
[2022-03-05] MEDS: ASPIRIN 81 MG CHEWABLE TABLET PO SCH (08:08)
[2022-03-05] MEDS: METOPROLOL SUCCINATE 25 MG ER TABLET PO SCH ×2 (08:08→20:03)
[2022-03-05] MEDS: DOCUSATE SODIUM 100 MG CAPSULE PO SCH ×3 (08:14→20:16)
[2022-03-05 10:54] LABS: CALCIUM, TOTAL 8.4 mg/dL (8.8-10.5); CREATININE 1.57 mg/dL (0.60-1.30); POTASSIUM 3.7 mmol/L (3.5-5.1)
[2022-03-05 11:35] VITALS: BP 136/82
[2022-03-05 15:43] VITALS: BP 128/80
[2022-03-05 19:28] VITALS: BP 133/84
[2022-03-05 23:52] VITALS: BP 118/73
[2022-03-06] MEDS: HEPARIN SODIUM,PORCINE 5,000 UNITS/ML VIAL SQ SCH ×3 (00:21→16:00)
[2022-03-06 04:20] VITALS: BP 131/87
[2022-03-06 07:26] VITALS: BP 136/90
[2022-03-06 08:32] LABS: CALCIUM, TOTAL 8.4 mg/dL (8.8-10.5); CREATININE 1.56 mg/dL (0.60-1.30); POTASSIUM 3.6 mmol/L (3.5-5.1)
[2022-03-06] MEDS: DOCUSATE SODIUM 100 MG CAPSULE PO SCH ×2 (09:00→20:59)
[2022-03-06] MEDS: OXYGEN THERAPY IH SCH ×2 (09:58→20:52)
[2022-03-06] MEDS: LISINOPRIL 5 MG TABLET PO SCH (09:59)
[2022-03-06] MEDS: FUROSEMIDE 40 MG/4 ML VIAL IVP SCH ×2 (09:59→20:53)
[2022-03-06] MEDS: ISOSORB DINIT/HYDRALAZINE HCL 20-37.5 MG TABLET PO SCH ×2 (09:59→20:52)
[2022-03-06] MEDS: PANTOPRAZOLE SODIUM 40 MG DR TABLET PO SCH (10:00)
[2022-03-06] MEDS: METOPROLOL SUCCINATE 25 MG ER TABLET PO SCH ×2 (10:00→20:53)
[2022-03-06] MEDS: ASPIRIN 81 MG CHEWABLE TABLET PO SCH (10:00)
[2022-03-06 11:20] VITALS: BP 103/69
[2022-03-06 15:13] VITALS: BP 122/82
[2022-03-06 20:20] VITALS: BP 123/87
[2022-03-06] MEDS: ZOLPIDEM TARTRATE 5 MG TABLET PO PRN (20:52)
[2022-03-06] MEDS: LISINOPRIL 10 MG TABLET PO SCH (20:53)
[2022-03-07 00:03] VITALS: BP 120/75
[2022-03-07] MEDS: HEPARIN SODIUM,PORCINE 5,000 UNITS/ML VIAL SQ SCH ×4 (00:06→23:40)
[2022-03-07 04:20] VITALS: BP 113/80
[2022-03-07 07:27] VITALS: BP 128/83
[2022-03-07] MEDS: LISINOPRIL 10 MG TABLET PO SCH ×2 (08:18→20:32)
[2022-03-07] MEDS: PANTOPRAZOLE SODIUM 40 MG DR TABLET PO SCH (08:18)
[2022-03-07] MEDS: FUROSEMIDE 40 MG/4 ML VIAL IVP SCH (08:18)
[2022-03-07] MEDS: DOCUSATE SODIUM 100 MG CAPSULE PO SCH ×2 (08:18→20:32)
[2022-03-07] MEDS: METOPROLOL SUCCINATE 25 MG ER TABLET PO SCH ×2 (08:19→20:32)
[2022-03-07] MEDS: ASPIRIN 81 MG CHEWABLE TABLET PO SCH (08:19)
[2022-03-07] MEDS: ISOSORB DINIT/HYDRALAZINE HCL 20-37.5 MG TABLET PO SCH ×2 (08:19→20:32)
[2022-03-07] MEDS: OXYGEN THERAPY IH SCH ×2 (08:29→20:00)
[2022-03-07 11:08] LABS: CALCIUM, TOTAL 8.8 mg/dL (8.8-10.5); CREATININE 1.49 mg/dL (0.60-1.30); POTASSIUM 3.3 mmol/L (3.5-5.1)
[2022-03-07] MEDS ORDERED: POTASSIUM CHLORIDE 20 MEQ ER TABLET PO ONE (11:30)
[2022-03-07 11:49] VITALS: BP 98/57
[2022-03-07] MEDS: FUROSEMIDE 40 MG TABLET PO SCH (12:40)
[2022-03-07 15:40] VITALS: BP 122/82
[2022-03-07 19:45] VITALS: BP 118/71
[2022-03-07] MEDS: ZOLPIDEM TARTRATE 5 MG TABLET PO PRN (21:34)
[2022-03-08 00:15] VITALS: BP 138/97
[2022-03-08 04:35] VITALS: BP 119/84
[2022-03-08 06:18] LABS: CALCIUM, TOTAL 8.8 mg/dL (8.8-10.5); CREATININE 1.51 mg/dL (0.60-1.30); POTASSIUM 3.7 mmol/L (3.5-5.1)
[2022-03-08 06:56] LABS: BASOPHILS % (AUTO) 0.7 % (0.0-2.0); EOSINOPHILS % (AUTO) 1.6 % (1.0-6.0); HEMATOCRIT 41.6 % (41-53); HEMOGLOBIN 13.7 g/dL (13.5-17.5); LYMPHOCYTES # (AUTO) 1.7 K/uL (1.0-4.8); LYMPHOCYTES % (AUTO) 38.2 % (22.0-44.0); MEAN CORPUSCULAR HEMOGLOBIN 30.9 pg (26.0-34.0); MEAN CORPUSCULAR VOLUME 94 fL (80-100); MONOCYTES # (AUTO) 0.8 K/uL (0.1-1.0); MONOCYTES % (AUTO) 18.3 % (2.0-9.0); NEUTROPHILS # (AUTO) 1.8 K/uL (1.8-7.7); NEUTROPHILS % (AUTO) 41.2 % (40.0-70.0); PLATELET COUNT (AUTO) 129 K/uL (150-450); RED BLOOD CELL COUNT(AUTO) 4.45 MIL/uL (4.50-5.90)
[2022-03-08 07:38] VITALS: BP 130/87
[2022-03-08] MEDS: OXYGEN THERAPY IH SCH (08:00)
[2022-03-08] MEDS: ISOSORB DINIT/HYDRALAZINE HCL 20-37.5 MG TABLET PO SCH (08:55)
[2022-03-08] MEDS: FUROSEMIDE 40 MG TABLET PO SCH (08:55)
[2022-03-08] MEDS: ASPIRIN 81 MG CHEWABLE TABLET PO SCH (08:55)
[2022-03-08] MEDS: LISINOPRIL 10 MG TABLET PO SCH (08:56)
[2022-03-08] MEDS: HEPARIN SODIUM,PORCINE 5,000 UNITS/ML VIAL SQ SCH (08:56)
[2022-03-08] MEDS: METOPROLOL SUCCINATE 25 MG ER TABLET PO SCH (08:56)
[2022-03-08] MEDS: PANTOPRAZOLE SODIUM 40 MG DR TABLET PO SCH (08:56)
[2022-03-08] MEDS: DOCUSATE SODIUM 100 MG CAPSULE PO SCH (09:00)
== END 2022-03-08 10:16 | disposition left against medical advice (07) | DRG 194 ==
LOC: EMS 03:57 → 5S 14:40
PROVIDERS: ADMIT Internal Medicine; ATTEND Internal Medicine
DX: I13.0 Hypertensive heart and chronic kidney disease with heart failure and stage 1 through stage 4 chronic kidney disease, or unspecified chronic kidney disease (principal); N17.9 Acute kidney failure, unspecified; I50.23 Acute on chronic systolic (congestive) heart failure; I43 Cardiomyopathy in diseases classified elsewhere; F15.10 Other stimulant abuse, uncomplicated; F17.200 Nicotine dependence, unspecified, uncomplicated; I42.8 Other cardiomyopathies; M41.9 Scoliosis, unspecified; N18.30 Chronic kidney disease, stage 3 unspecified; F41.9 Anxiety disorder, unspecified; Z20.822 Contact with and (suspected) exposure to COVID-19; Z53.29 Procedure and treatment not carried out because of patient's decision for other reasons; Z79.82 Long term (current) use of aspirin; Z79.899 Other long term (current) drug therapy; Z87.01 Personal history of pneumonia (recurrent); Z95.810 Presence of automatic (implantable) cardiac defibrillator
CPT/HCPCS: 71045; 80048; 80053; 81001; 82550; 83605; 83690; 83880; 84484; 85025; 87081; 93005; 93306; 99285; G0480; J1644; J1940; J2270; J2405; 36415-L1; 36415-TC

== ENCOUNTER 2022-03-17 10:18 | Emergency (ER) | payer OTHER ==
[~2022-03-17] VITALS: Ht 172.7 cm; Wt 100.0 kg
[~2022-03-17 10:18] MED LIST changes: +CEPH-558 PO; +DOXY-354 PO
[2022-03-17 10:23] VITALS: BP 165/93
== END 2022-03-17 14:14 | disposition left against medical advice (07) ==
LOC: EMS 10:20
DX: Z53.21 Procedure and treatment not carried out due to patient leaving prior to being seen by health care provider (principal)

== ENCOUNTER 2022-05-17 14:23 | Inpatient (IN) | payer OTHER ==
[~2022-05-17] VITALS: Ht 170.2 cm; Wt 101.4 kg
[2022-05-17] MEDS ORDERED: FUROSEMIDE 40 MG/4 ML VIAL IVP ONE (14:45)
[2022-05-17] MEDS ORDERED: NITROGLYCERIN 2% (1 GM=INCH) OINTMENT PACKET TP ONE (14:45)
[2022-05-17 15:27] LABS: BASOPHILS % (AUTO) 0.7 % (0.0-2.0); EOSINOPHILS % (AUTO) 0.5 % (1.0-6.0); HEMOGLOBIN 12.1 g/dL (13.5-17.5); MEAN CORPUSCULAR HEMOGLOBIN 27.9 pg (26.0-34.0); MEAN CORPUSCULAR HGB CONC 31.8 G/dL (31.0-37.0); MEAN CORPUSCULAR VOLUME 88 fL (80-100); MONOCYTES % (AUTO) 15.4 % (2.0-9.0); NEUTROPHILS # (AUTO) 4.4 K/uL (1.8-7.7); NEUTROPHILS % (AUTO) 68.4 % (40.0-70.0); PLATELET COUNT (AUTO) 145 K/uL (150-450); RED BLOOD CELL COUNT(AUTO) 4.34 MIL/uL (4.50-5.90); RED CELL DISTRIBUTION WIDTH 16.1 % (11.5-14.5)
[2022-05-17 15:30] LABS: CALCIUM, TOTAL 9.1 mg/dL (8.8-10.5); CREATININE 1.7 mg/dL (0.60-1.30); POTASSIUM 3.7 mmol/L (3.5-5.1)
[2022-05-17 15:48] LABS: COVID AG,FIA SOURCE NASAL SWAB
[2022-05-17 15:56] LABS: BILIRUBIN,TOTAL 1.1 mg/dL (0.1-1.0); TOTAL PROTEIN, SERUM 8.3 g/dL (6.4-8.2)
[2022-05-17] MEDS ORDERED: ASPIRIN 81 MG CHEWABLE TABLET PO ONE (16:45)
[2022-05-17 17:00] LABS: INR 1.2 (0.9-1.1)
[2022-05-17 17:13] LABS: ABG BASE EXCESS 3.8 mmol/L (-2.0-3.0); ABG CARBOXYHEMOGLOBIN 1.2 % (0.0-1.5); ABG HCO3 27.5 mmol/L (22.0-26.0); ABG METHEMOGLOBIN 0.2 % (0.0-1.5); ABG OXYHEMOGLOBIN 95.6 % (94.0-100.0); ABG PCO2 42 mmHg (35-45); ABG PH 7.437 (7.35-7.450); ABG TOTAL HEMOGLOBIN 13.3 G/dL (12.0-18.0); PO2, ARTERIAL BG 91.6 mmHg (79.0-87.0); SOURCE, BLOOD GAS ARTERIAL; TEMPERATURE, FAHRENHEIT, BG 98.4 FAHREN (96.0-98.6)
[2022-05-17 17:14] LABS: O2 DEVICE,BLOOD GAS NC (ROOM AIR); SITE, BLOOD GAS LFT RADIAL
[2022-05-17 17:26] LABS: AMPHET/METH SCREEN,URINE POSITIVE (NEGATIVE); BARBITURATE SCREEN, URINE NEGATIVE (NEGATIVE); BENZODIAZEPINES SCREEN,URINE NEGATIVE (NEGATIVE); CANNABINOID SCREEN,URINE NEGATIVE (NEGATIVE); COCAINE SCREEN,URINE NEGATIVE (NEGATIVE); METHADONE SCREEN, URINE NEGATIVE (NEGATIVE); OPIATE SCREEN,URINE NEGATIVE (NEGATIVE)
[2022-05-17 17:37] LABS: APPEARANCE,URINE CLEAR (CLEAR); BILIRUBIN,URINE NEGATIVE (NEGATIVE); GLUCOSE, URINE (UA) NEGATIVE (NEGATIVE); KETONES,URINE NEGATIVE (NEGATIVE); LEUKOCYTE ESTERASE ,URINE NEGATIVE (NEGATIVE); NITRATE,URINE NEGATIVE (NEGATIVE); OCCULT BLOOD,URINE NEGATIVE (NEGATIVE); PH,URINE 6.5 (5.0-8.0); PROTEIN,URINE 30-70 mg/dL (NEGATIVE); SPECIFIC GRAVITIY, URINE 1.005 (1.003-1.030); UROBILINOGEN,URINE <=1.0 mg/dL (<=1.0)
[2022-05-17 17:42] LABS: PHENCYCLIDINE SCREEN,URINE NEGATIVE (NEGATIVE)
[2022-05-17] MEDS ORDERED: ONDANSETRON HCL 4 MG/2 ML VIAL IVP PRN (21:15)
[2022-05-17] MEDS ORDERED: HYDROCODONE/ACETAMINOPHEN 5-325 MG TABLET PO PRN (21:15)
[2022-05-17] MEDS ORDERED: BISACODYL 10 MG RECTAL RECTAL SUPPOSITORY PR PRN (21:15)
[2022-05-17] MEDS ORDERED: MAGNESIUM HYDROXIDE SUSPENSION 30 ML UDCUP PO PRN (21:15)
[2022-05-17] MEDS ORDERED: ZOLPIDEM TARTRATE 5 MG TABLET PO PRN (21:15)
[2022-05-17] MEDS ORDERED: ACETAMINOPHEN 325 MG TABLET PO PRN (21:15)
[2022-05-17] MEDS ORDERED: MORPHINE SULFATE 2 MG/ML SYRINGE IVP PRN (21:15)
[2022-05-17 21:25] VITALS: BP 163/112
[2022-05-17] MEDS ORDERED: HydrALAZINE HCL 20 MG/ML VIAL IVP PRN (21:30)
[2022-05-17] MEDS ORDERED: INFLUENZA VIRUS VACCINE QVS 2022-23 (6MO+)/PF 60 MCG/0.5 ML SYRINGE IM. ONE (23:45)
[2022-05-17] MEDS ORDERED: PNEUMOCOCCAL VACCINE POLYVALENT 0.5 ML VIAL [PPSV23] IM. ONE (23:45)
[2022-05-18 00:26] VITALS: BP 154/65
[2022-05-18] MEDS: HEPARIN SODIUM,PORCINE 5,000 UNITS/ML VIAL SQ SCH ×4 (00:34→23:32)
[2022-05-18 05:45] LABS: BASOPHILS % (AUTO) 0.5 % (0.0-2.0); EOSINOPHILS % (AUTO) 0.2 % (1.0-6.0); HEMATOCRIT 37.7 % (41-53); HEMOGLOBIN 12.5 g/dL (13.5-17.5); LYMPHOCYTES # (AUTO) 1.3 K/uL (1.0-4.8); LYMPHOCYTES % (AUTO) 17.4 % (22.0-44.0); MEAN CORPUSCULAR HEMOGLOBIN 29.1 pg (26.0-34.0); MEAN CORPUSCULAR HGB CONC 33.3 G/dL (31.0-37.0); MEAN CORPUSCULAR VOLUME 88 fL (80-100); MONOCYTES # (AUTO) 1.2 K/uL (0.1-1.0); MONOCYTES % (AUTO) 16.1 % (2.0-9.0); NEUTROPHILS # (AUTO) 4.8 K/uL (1.8-7.7); NEUTROPHILS % (AUTO) 65.8 % (40.0-70.0); PLATELET COUNT (AUTO) 137 K/uL (150-450); RED BLOOD CELL COUNT(AUTO) 4.31 MIL/uL (4.50-5.90); RED CELL DISTRIBUTION WIDTH 16.2 % (11.5-14.5)
[2022-05-18 06:00] LABS: CALCIUM, TOTAL 9.1 mg/dL (8.8-10.5); CHOL/HDL RATIO 3.3 (4.2-7.3); CREATININE 1.87 mg/dL (0.60-1.30); POTASSIUM 3.4 mmol/L (3.5-5.1)
[2022-05-18 06:04] VITALS: BP 148/67
[2022-05-18 08:36] VITALS: BP 175/118
[2022-05-18] MEDS: PANTOPRAZOLE SODIUM 40 MG DR TABLET PO SCH (10:30)
[2022-05-18] MEDS: ASPIRIN 81 MG CHEWABLE TABLET PO SCH (10:30)
[2022-05-18] MEDS: ISOSORB DINIT/HYDRALAZINE HCL 20-37.5 MG TABLET PO SCH ×2 (10:30→21:11)
[2022-05-18] MEDS: LISINOPRIL 5 MG TABLET PO SCH ×2 (10:30→21:10)
[2022-05-18] MEDS: METOPROLOL SUCCINATE 25 MG ER TABLET PO SCH ×2 (10:31→21:11)
[2022-05-18] MEDS: DOCUSATE SODIUM 100 MG CAPSULE PO SCH ×2 (10:31→21:11)
[2022-05-18] MEDS: FUROSEMIDE 20 MG/2 ML VIAL IVP SCH ×2 (10:33→21:10)
[2022-05-18 12:00] VITALS: BP 76/56
[2022-05-18 15:05] VITALS: BP 140/87
[2022-05-18 20:53] VITALS: BP 145/82
[2022-05-19] VITALS (7 sets, daily range): BP systolic 137–161; BP diastolic 61–109
[2022-05-19 06:03] LABS: CREATININE 1.73 mg/dL (0.60-1.30); POTASSIUM 3.7 mmol/L (3.5-5.1)
[2022-05-19 06:04] LABS: CALCIUM, TOTAL 8.8 mg/dL (8.8-10.5)
[2022-05-19 06:09] LABS: BASOPHILS % (AUTO) 0.5 % (0.0-2.0); EOSINOPHILS % (AUTO) 0.2 % (1.0-6.0); HEMATOCRIT 34.2 % (41-53); HEMOGLOBIN 11.4 g/dL (13.5-17.5); LYMPHOCYTES # (AUTO) 1.1 K/uL (1.0-4.8); LYMPHOCYTES % (AUTO) 16.1 % (22.0-44.0); MEAN CORPUSCULAR HEMOGLOBIN 29.3 pg (26.0-34.0); MEAN CORPUSCULAR HGB CONC 33.3 G/dL (31.0-37.0); MEAN CORPUSCULAR VOLUME 88 fL (80-100); MONOCYTES # (AUTO) 0.9 K/uL (0.1-1.0); MONOCYTES % (AUTO) 13.3 % (2.0-9.0); NEUTROPHILS % (AUTO) 69.9 % (40.0-70.0); PLATELET COUNT (AUTO) 130 K/uL (150-450); RED CELL DISTRIBUTION WIDTH 15.8 % (11.5-14.5)
[2022-05-19] MEDS: ASPIRIN 81 MG CHEWABLE TABLET PO SCH (08:18)
[2022-05-19] MEDS: FUROSEMIDE 20 MG/2 ML VIAL IVP SCH (08:20)
[2022-05-19] MEDS: LISINOPRIL 5 MG TABLET PO SCH (08:20)
[2022-05-19] MEDS: PANTOPRAZOLE SODIUM 40 MG DR TABLET PO SCH (08:20)
[2022-05-19] MEDS: HEPARIN SODIUM,PORCINE 5,000 UNITS/ML VIAL SQ SCH ×2 (08:20→16:25)
[2022-05-19] MEDS: ISOSORB DINIT/HYDRALAZINE HCL 20-37.5 MG TABLET PO SCH (08:21)
[2022-05-19] MEDS: METOPROLOL SUCCINATE 25 MG ER TABLET PO SCH (09:31)
[2022-05-19] MEDS: DOCUSATE SODIUM 100 MG CAPSULE PO SCH (09:31)
[2022-05-19 15:51] LABS: ABG BASE EXCESS 0.3 mmol/L (-2.0-3.0); ABG CARBOXYHEMOGLOBIN 0.9 % (0.0-1.5); ABG HCO3 24.1 mmol/L (22.0-26.0); ABG METHEMOGLOBIN 0.3 % (0.0-1.5); ABG OXYGEN CONTENT 11.6 mL/dL (15.0-23.0); ABG OXYHEMOGLOBIN 64.8 % (94.0-100.0); ABG PCO2 41 mmHg (35-45); ABG PH 7.404 (7.35-7.450); ABG TOTAL HEMOGLOBIN 12.7 G/dL (12.0-18.0); SOURCE, BLOOD GAS ARTERIAL; TEMPERATURE, FAHRENHEIT, BG 98.6 FAHREN (96.0-98.6)
[2022-05-19 15:54] LABS: ABG OXYGEN SATURATION 65.6 % (95.0-98.0); O2 DEVICE,BLOOD GAS ROOM AIR (ROOM AIR); PO2, ARTERIAL BG 37.6 mmHg (79.0-87.0); SITE, BLOOD GAS LFT RADIAL
[2022-05-19 15:55] LABS: SPONTANEOUS VT, BG 30 ml
== END 2022-05-19 20:10 | disposition left against medical advice (07) | DRG 194 ==
LOC: EMS 14:25 → 5S 19:16
PROVIDERS: ADMIT Internal Medicine; ATTEND Internal Medicine
DX: I11.0 Hypertensive heart disease with heart failure (principal); J96.01 Acute respiratory failure with hypoxia; R65.11 Systemic inflammatory response syndrome (SIRS) of non-infectious origin with acute organ dysfunction; I50.23 Acute on chronic systolic (congestive) heart failure; N17.9 Acute kidney failure, unspecified; E66.9 Obesity, unspecified; F15.10 Other stimulant abuse, uncomplicated; F17.210 Nicotine dependence, cigarettes, uncomplicated; M41.9 Scoliosis, unspecified; R73.03 Prediabetes; Z53.29 Procedure and treatment not carried out because of patient's decision for other reasons; Z91.199 Patient's noncompliance with other medical treatment and regimen due to unspecified reason; Z68.35 Body mass index [BMI] 35.0-35.9, adult; Z79.899 Other long term (current) drug therapy; Z79.82 Long term (current) use of aspirin
CPT/HCPCS: 36600; 71045; 80048; 80053; 80061; 81003; 82550; 82805; 83036; 83880; 84484; 85025; 85610; 85730; 93005; 93306; 99291; J1644; J1940; 36415-L1; 36415-TC